=== PATIENT | female | born 1960 | race Caucasian/White ===

== ENCOUNTER 2021-10-21 12:28 | Emergency (ER) | payer MEDICARE, SELFPAY ==
--- NOTE | ~2021-10-21 | XR_ITS ---
EXAMINATION: XR chest 2V DATE: 10/21/2021 13:00 INDICATION: Cough. Chronic obstructive pulmonary disease. TECHNIQUE: Frontal and lateral views of the chest were obtained. COMPARISON: None. FINDINGS: The lungs are hyperexpanded with lucencies and architectural distortion, consistent with em physema. There is a staple line in left upper lobe. There are coarse interstitial opacities in all benjamin ng zones with a lower lung predominance. No pleural effusion or pneumothorax. The heart size is rossy l. There are changes of right-sided acromioclavicular separation. IMPRESSION: 1. Emphysema. 2. Coarse interstitial opacities in all lung zones with a lower lung predominance, which may be chron ic lung disease. Superimposed pneumonia cannot be excluded. Reviewed, dictated and finalized at location B. IMPRESSION: 1. Emphysema. 2. Coarse interstitial opacities in all lung zones with a lower lung predominan ce, which may be chronic lung disease. Superimposed pneumonia cannot be exclude dLuis
[2021-10-21 12:36] VITALS: BP 103/63; PULSE 109; RESP 16; TEMP 37.6; O2SAT 92
--- NOTE | 2021-10-21 12:46 | ED.URI ---
HPI - URI/Sore Throat General Chief Complaint: Upper Respiratory Infection Stated Complaint: Sinus Pain/Cough Time Seen by Provider: 10/21/21 12:46 Source: patient and RN notes reviewed History of Present Illness HPI Narrative: Patient is a 61-year-old female who presents the urgent care with complaints of increased coughing, productive yellow sputum, shortness of breath, headaches and sinus pressure/pain. Patient does have COPD and uses 2 L of oxygen at home. States that when she has gotten up in the last few days she is needed to up her oxygen. Patient states symptoms started approximately 1 week ago and her PCP was unable to get her into the office. Patient has been using Tylenol for the headache and Tylenol Cold and sinus for upper respiratory symptoms. Patient denies any chest pain. She is also been using her nebulizers and inhalers. No other acute complaints. Visible dyspnea on exertion. Patient aware of the plan of care. Some parts of this dictation were generated by voice recognition software and may contain typographical and/or grammatical inaccuracies. Related Data Home Medications Medication Instructions Recorded Confirmed albuterol sulfate 2 puff INHALATION Q4H PRN 10/21/21 10/21/21 albuterol sulfate 2.5 mg CONTINUOUS NEBULIZATION Q4H 10/21/21 10/21/21 PRN atenolol 25 mg PO DAILY 10/21/21 10/21/21 wazatmskdt-uwacdyyq-ynyvywkpqt 2 inh INHALATION BID 10/21/21 10/21/21 [Breztri Aerosphere] citalopram 20 mg PO DAILY 10/21/21 10/21/21 hvhcgmzvilu-miowxsuxj-xwwczluo 1 inh INHALATION DAILY 10/21/21 10/21/21 [Trelegy Ellipta] hydroxyzine pamoate 25 mg PO Q8H PRN 10/21/21 10/21/21 montelukast 10 mg PO DAILY 10/21/21 10/21/21 roflumilast [Daliresp] 50 mcg PO DAILY 10/21/21 10/21/21 rosuvastatin 20 mg PO HS 10/21/21 10/21/21 trazodone 50 mg PO TID 10/21/21 10/21/21 Allergies Allergy/AdvReac Type Severity Reaction Status Date / Time clindamycin Allergy Unknown Rash Verified 10/21/21 13:15 sulfamethoxazole Allergy Unknown Rash Verified 10/21/21 13:15 trimethoprim Allergy Unknown Rash Verified 10/21/21 13:15 Review of Systems Review of Systems: CONSTITUTIONAL: Denies fever, chills, or sweats. EYES: Denies visual changes, redness, or discharge. ENT: Reports of sinus pressure, rhinorrhea and postnasal drainage CARDIOVASCULAR: Denies chest pain, palpitations, or edema. RESPIRATORY: Reports a productive cough with increased dyspnea GASTROINTESTINAL: Denies abdominal pain, nausea, vomiting, or diarrhea. GENITOURINARY: Denies dysuria or hematuria. SKIN: Denies rash or itching. MUSCULOSKELETAL: Denies back pain, joint pain, or myalgia. NEUROLOGIC: Denies headache, numbness, or weakness. All other systems reviewed are negative, except as documented in HPI. PMFSH Comments At the time of my signature, I reviewed and agree with the nursing past medical, surgical, social, and family history. There is no relevant family history pertinent to the patient complaint. Exam Narrative: GENERAL: This is a well-nourished, well-developed patient, in no apparent distress. HEAD: normocephalic, atraumatic. EYES: PERRL. Sclera clear/white. Vision is grossly intact. EARS: External ears normal, auditory canals clear and without drainage, TMs normal without perforation. Hearing grossly intact. NOSE: External nose normal with no obvious nasal discharge, nares without redness, no rhinorrhea. THROAT: Mucous membranes moist. Moderate postnasal drainage NECK: Neck supple CARDIOVASCULAR: Regular rate RESPIRATORY: Diminished tight coarse expiratory wheezes throughout SKIN: warm, intact with no suspicious lesions or rash, good texture and turgor. NEURO: awake, alert, and oriented to person, place and time. There were no obvious focal neurologic abnormalities. EXTREMITIES: No clubbing, cyanosis, or edema. Course Course Level of Care: Express Care Visit Vital Signs Vital signs: Vital Signs Temperature 99.7 F H 10/21/21 12:36 Pulse Rate
--- NOTE | 2021-10-21 13:04 | PC.NURSE ---
PT AMBULATED TO XRAY AND HAS INCREASING SHORTNESS OF BREATH WITH AMBULATION. RETURNED TO ROOM PER WHEELCHAIR WITH PULSE OX=85%. INCREASED O2 TO 3L/NC ON HER MACHINE AND AFTER RESTING A FEW MINUTES WAS BREATHING EASIER AND PULSE OX UP TO 95%.
[2021-10-21] MEDS: predniSONE 20 MG TABLET 60 MG PO (13:18)
== END 2021-10-21 13:35 | disposition home or self-care (01) ==
PROVIDERS: Emergency Provider Nurse Practitioner Family; PCP Internal Medicine Geriatric Medicine
DX: J44.9 Chronic obstructive pulmonary disease, unspecified (principal); J18.9 Pneumonia, unspecified organism; Z99.81 Dependence on supplemental oxygen
CPT/HCPCS: 71046; 99203; G0463; J7512

== ENCOUNTER 2021-11-26 14:27 | Emergency (ER) | payer MEDICARE, SELFPAY ==
--- NOTE | 2021-11-26 14:35 | ED.URI ---
HPI - URI/Sore Throat General Chief Complaint: Upper Respiratory Infection Stated Complaint: congestion cough Time Seen by Provider: 11/26/21 14:35 Source: patient Mode of arrival: ambulatory Limitations: no limitations History of Present Illness HPI Narrative: Ms. Curran is a 61-year-old female patient presenting to the clinic today with complaints of cough and congestion for 2 to 3 weeks She reports she is having a productive cough with green phlegm. She also reports she is short of breath with exertion. Oxygen saturation is at 89% on 2 L nasal cannula. She does wear home O2. She reports that she is gradually feeling worse. Was seen last month and given a prescription for prednisone and doxycycline and that helped at that time. Offered breathing treatment in the clinic as patient has tight lung sounds with expiratory wheezing and patient declined and stated that she would take 1 when she gets home. MD elicited complaint: sore throat and nasal congestion Related Data Home Medications Medication Instructions Recorded Confirmed albuterol sulfate 2.5 mg/3 mL 2.5 mg continuous nebulization Q4H 10/21/21 11/26/21 (0.083 %) solution for nebulization PRN Shortness Of Breath Or Wheezing albuterol sulfate 90 mcg/actuation 2 puff inhalation Q4H PRN 10/21/21 11/26/21 aerosol inhaler Shortness Of Breath Or Wheezing atenolol 25 mg tablet 25 mg PO DAILY 10/21/21 11/26/21 budesonide 160 mcg-glycopyr 9 2 inh inhalation BID 10/21/21 11/26/21 mcg-formot 4.8 mcg/actuation HFA inhaler (Breztri Aerosphere) citalopram 20 mg tablet 20 mg PO DAILY 10/21/21 11/26/21 fluticasone fur. 100 mcg-umeclid 1 inh inhalation DAILY 10/21/21 11/26/21 62.5 mcg-vilant 25 mcg inhalat.powder (Trelegy Ellipta) hydroxyzine pamoate 25 mg capsule 25 mg PO Q8H PRN Anxiety 10/21/21 11/26/21 montelukast 10 mg tablet 10 mg PO DAILY 10/21/21 11/26/21 roflumilast 500 mcg tablet 50 mcg PO DAILY 10/21/21 11/26/21 (Daliresp) rosuvastatin 10 mg tablet 20 mg PO HS 10/21/21 11/26/21 trazodone 50 mg tablet 50 mg PO TID 10/21/21 11/26/21 atenolol 25 mg tablet 25 mg PO DAILY 11/26/21 11/26/21 Allergies Allergy/AdvReac Type Severity Reaction Status Date / Time clindamycin Allergy Unknown Rash Verified 11/26/21 14:40 sulfamethoxazole Allergy Unknown Rash Verified 11/26/21 14:40 trimethoprim Allergy Unknown Rash Verified 11/26/21 14:40 Review of Systems Review of Systems: Pertinent positives per HPI. Patient denies any fever, chills, rash, headache, visual changes, dizziness, runny nose, sore throat, chest pain, palpitations, nausea, vomiting, diarrhea, constipation, abdominal pain, or any urinary issues. PMFSH Comments At the time of my signature, I reviewed and agree with the nursing past medical, surgical, social, and family history. There is no relevant family history pertinent to the patient complaint. Exam Narrative: General: Well-developed, thin, in no apparent distress Head: Normocephalic, atraumatic Eyes: Pupils equally round and reactive to light bilaterally, EOM intact, sclera and conjunctive clear, no discharge, lids normal Ears: TMs intact and clear, ear canals clear, no drainage, grossly hearing normal. Nose: Nares patent, clear nasal discharge, mild inflammation, no sinus tenderness. Mouth: Oropharynx without lesions or masses, good dentition, MMM. Neck: Supple, trachea midline, no enlargement of anterior or posterior cervical nodes, no thyroid masses or goiter palpable. Cardio: Regular rate and rhythm, s1 and s2 normal, no murmur appreciated. Resp: Diminished breath sounds with expiratory wheezing with mild increase in respiratory effort upon exertion Course Course Emergency Course: Portions of this record may have been created with voice recognition software. Level of Care: Express Care Visit Vital Signs Vital signs: Vital Signs Oxygen Flow Rate 2 11/26/21 14:32 Temperature 36.4 C L 11/26/21 14:41 Pulse Rate 84 0
[2021-11-26 14:40] VITALS: BP 112/57; PULSE 84; RESP 16; TEMP 36.4; O2SAT 89
[2021-11-26 14:41] VITALS: BP 112/57; PULSE 84; RESP 16; TEMP 36.4; O2SAT 89
== END 2021-11-26 14:50 | disposition home or self-care (01) ==
PROVIDERS: Emergency Provider Nurse Practitioner Family; PCP Internal Medicine Geriatric Medicine
DX: J44.1 Chronic obstructive pulmonary disease with (acute) exacerbation (principal); E78.00 Pure hypercholesterolemia, unspecified; I10 Essential (primary) hypertension; F41.9 Anxiety disorder, unspecified; Z85.72 Personal history of non-Hodgkin lymphomas; Z94.81 Bone marrow transplant status
CPT/HCPCS: 99213; G0463

== ENCOUNTER 2022-11-28 14:44 | Emergency (ER) | payer MEDICARE, SELFPAY ==
--- NOTE | ~2022-11-28 | XR_ITS ---
EXAMINATION: XR chest 2V DATE: 11/28/2022 15:03 INDICATION: Shortness of breath TECHNIQUE: PA and lateral views of the chest are obtained. COMPARISON: 10/21/2021 FINDINGS: There are lucencies in the upper lung zones, consistent with emphysema. Again seen are coar se interstitial opacities, worse in the mid and lower lung zones, without slight worsening. No pleura l effusion or pneumothorax. Surgical changes are noted in the left upper lobe. The cardiomediastinal silhouette is normal. There is moderate thoracic spondylosis. Chronic right acromioclavicular joint s eparation is noted. IMPRESSION: 1. Emphysema. 2. Chronic coarse opacities, worst in the mid and lower lung zones, with interval worsening, consiste nt with chronic interstitial lung disease with or without superimposed pneumonia. Reviewed, dictated and finalized at location F. IMPRESSION: 1. Emphysema. 2. Chronic coarse opacities, worst in the mid and lower lung zones, with interv al worsening, consistent with chronic interstitial lung disease with or without superimposed pneumonia.
[2022-11-28 14:53] VITALS: BP 91/41; PULSE 101; RESP 20; TEMP 36.8; O2SAT 90
--- NOTE | 2022-11-28 15:00 | PC.NURSE ---
PT AMBULATED TO XRAY WITH OXYGEN TANK FROM THIS FACILITY AT 3L/NC. SPO2= 92%, HR 102/BPM. PROVIDER NOTIFIED.
--- NOTE | 2022-11-28 15:02 | ED.URI ---
HPI - URI/Sore Throat General Chief Complaint: Upper Respiratory Infection Stated Complaint: Shortness Of Breath Time Seen by Provider: 11/28/22 15:02 Source: patient Mode of arrival: ambulatory Limitations: no limitations History of Present Illness HPI Narrative: 62 yo F with hx of COPD presents with c/o cough, chest congestion for 1 wk. Symptoms getting progressively worse. Using over the counter cold and sinus medication. afebrile. Has albuterol nebs at home but states has only used machine a few times the past week. States she just doesn't think about doing them . Uses 2L O2 at all times. Sleeps with cpap. purse lip breathing and taking some gasps of air when talking. States didn't want to go to ER because wait is too long but needs to be out of here in 2 hours or oxygen will run out . All systems reviewed and negative except as noted above. Related Data Home Medications Medication Instructions Recorded Confirmed albuterol sulfate 2.5 mg/3 mL 2.5 mg continuous nebulization Q4H 10/21/21 11/28/22 (0.083 %) solution for nebulization PRN Shortness Of Breath Or Wheezing albuterol sulfate 90 mcg/actuation 2 puff inhalation Q4H PRN 10/21/21 11/28/22 aerosol inhaler Shortness Of Breath Or Wheezing citalopram 20 mg tablet 20 mg PO DAILY 10/21/21 11/28/22 hydroxyzine pamoate 25 mg capsule 25 mg PO Q8H PRN Anxiety 10/21/21 11/28/22 montelukast 10 mg tablet 10 mg PO DAILY 10/21/21 11/28/22 roflumilast 500 mcg tablet 500 mcg PO DAILY 10/21/21 11/28/22 (Daliresp) atenolol 25 mg tablet 25 mg PO DAILY 11/26/21 11/28/22 clopidogrel 75 mg tablet 75 mg PO DAILY 11/28/22 11/28/22 ranolazine 500 mg tablet,extended 500 mg PO BID 11/28/22 11/28/22 release,12 hr rosuvastatin 20 mg tablet 20 mg PO QHS 11/28/22 11/28/22 Allergies Allergy/AdvReac Type Severity Reaction Status Date / Time clindamycin Allergy Unknown Rash Verified 11/28/22 15:08 sulfamethoxazole Allergy Unknown Rash Verified 11/28/22 15:08 trimethoprim Allergy Unknown Rash Verified 11/28/22 15:08 Review of Systems Review of Systems: CONSTITUTIONAL: Denies fever, chills, or sweats. EYES: Denies visual changes, redness, or discharge. ENT: Denies rhinorrhea, congestion, sore throat, or otalgia. CARDIOVASCULAR: Denies chest pain, palpitations, or edema. RESPIRATORY: Reports cough chest congestion and dyspnea. GASTROINTESTINAL: Denies abdominal pain, nausea, vomiting, or diarrhea. GENITOURINARY: Denies dysuria or hematuria. SKIN: Denies rash or itching. MUSCULOSKELETAL: Denies back pain, joint pain, or myalgia. NEUROLOGIC: Denies headache, numbness, or weakness. PSYCHIATRIC: Denies anxiety or depression. All other systems reviewed are negative, except as documented in HPI. PMFSH Comments At time of signature, agree with nursing past medical, surgical, social and family history. There is no relevant family history pertinent to the presenting complaint. Exam Narrative: GENERAL: This is a well-nourished, well-developed patient, mild resp distress. HEAD: normocephalic, atraumatic. EYES: PERRL. Sclera clear/white. Vision is grossly intact. EARS: External ears normal, auditory canals clear and without drainage, TMs normal without perforation. Hearing grossly intact. NOSE: External nose normal with no obvious nasal discharge, nares without redness, no rhinorrhea. THROAT: Mucous membranes moist, posterior pharynx clear. NECK: Neck supple, non-tender without lymphadenopathy, masses or thyromegaly. CARDIOVASCULAR: Regular rate and rhythm without murmurs, gallops, or rubs. RESPIRATORY: Tight, decreased throughout all lung elizondo. No wheezes, rales, or rhonchi. SKIN: warm, Dry, intact with no suspicious lesions or rash, good texture and turgor. NEURO: awake, alert, and oriented to person, place and time. There were no obvious focal neurologic abnormalities. EXTREMITIES: No joint tenderness, effusion, or edema noted. Course Course Level of Care: Express Care Visit
[2022-11-28] MEDS: IPRATROPIUM BR 0.02% INH SOLN 0.5 MG/2.5 ML VIAL INHALATION (15:16)
[2022-11-28] MEDS: ALBUTEROL SULFATE NEB 2.5 MG/3 ML INH INHALATION (15:16)
[2022-11-28] MEDS: predniSONE 20 MG TABLET 40 MG PO (15:17)
[2022-11-28 16:03] VITALS: BP 106/44; PULSE 81; RESP 20; O2SAT 92
== END 2022-11-28 16:03 | disposition left against medical advice (07) ==
PROVIDERS: Emergency Provider Nurse Practitioner Family; PCP Internal Medicine Geriatric Medicine
DX: J44.1 Chronic obstructive pulmonary disease with (acute) exacerbation (principal); J18.9 Pneumonia, unspecified organism; Z99.81 Dependence on supplemental oxygen; E78.00 Pure hypercholesterolemia, unspecified; I10 Essential (primary) hypertension; F41.9 Anxiety disorder, unspecified; Z85.72 Personal history of non-Hodgkin lymphomas
CPT/HCPCS: 71046; 94640; 99213; G0463; J7512